=== PATIENT | female | born 1975 | race Caucasian/White ===

== ENCOUNTER → 2017-08-31 | Outpatient (CLI) | payer OTHER ==
--- NOTE | 2017-08-31 14:34 | KCIC ---
Examination: MRI of the left shoulder without contrast HISTORY: History of left shoulder pain with decreased range of motion, history of fall COMPARISON: None available Technique: Multiplanar, multisequence MR imaging of the left shoulder performed without contrast. FINDINGS: The long of the biceps tendon is within the bicipital groove. The attachment of the long of the biceps tendon to superior labral anchor grossly appears intact. The alignment of the subscapularis tendon grossly appears intact. There is mild increase identified in the subscapularis tendon likely mild tendinosis or interstitial tear. Mild tendinosis of the supraspinatus mental status tendon without evidence of full-thickness rotator cuff tear. The muscle bulk grossly appears unremarkable. The acromion is type II. The visualized labrum grossly appears unremarkable. There is preservation of fat in the rotator interval. IMPRESSION: 1. Mild increased signal identified in the subscapularis tendon likely mild tendinosis of a small focus of interstitial tear. No evidence of full-thickness tear of the rotator cuff. Electronically signed by: Jacky Sosa MD (08/31/2017 2:31 PM) [place] [id number]
== END | disposition home or self-care (01) ==
LOC: KCIC MRI 10:49
PROVIDERS: ATTEND Nurse Practitioner Gerontology
DX: M25.512 Pain in left shoulder (principal)
CPT/HCPCS: 73221